=== PATIENT | male | born 1970 | race Caucasian/White ===

== ENCOUNTER → 2020-09-04 | Outpatient (CLI) | payer BC, SELFPAY ==
[2020-09-04 22:44] LABS: Absolute Lymphocyte Count 3.88 X10^3/uL (0.83-4.51); Absolute Neutrophil Count 5.4 X10^3/uL (2.0-7.7); Basophil# 0.09 X10^3/uL; Basophil% 0.9 % (0-1); Eosinophil# 0.14 X10^3/uL; Eosinophils% 1.4 % (0-5); Hematocrit 46.8 % (40-54); Hemoglobin 15.6 g/dL (13.0-16.5); Lymphocyte # 3.88 X10^3/ul (4.0); Lymphocyte % 38.4 % (19-41); Mean Corp Hgb Conc 33.3 g/dL (32-36); Mean Corpuscular Hgb 27.2 pg (27.0-32.0); Mean Corpuscular Volume 81.7 fL (80-94); Mean Platelet Vol. 9.9 fl (6.2-12.0); Monocyte# 0.61 X10^3/uL; NRBC Flagged by Analyzer 0 % (0-5); Neutrophil # 5.37 X10^3/uL (2.7-7.7); Neutrophil % 53.1 % (47-70); Platelet Count 295 K/mm3 (150-450); RBC Distribution Width CV 12.2 % (11.6-14.6); Red Blood Count 5.73 M/mm3 (4.6-6.2); White Blood Count 10.1 K/mm3 (4.4-11.0)
[2020-09-04 23:04] LABS: AST(SGOT) 17 U/L (15-37); Alanine Aminotransfer ALT/SGPT 40 U/L (16-61); Alkaline Phosphatase 100 U/L (45-117); Anion Gap 8 (5-15); BUN 18 mg/dL (7-18); BUN/Creat Ratio 16.4 RATIO (10-20); Calcium,Total 9.7 mg/dL (8.5-10.1); Chloride 97 mmol/L (98-107); EST Glomerular Filtration Rate 75 mL/min (>60); Est Glom Filt Rate - Afr Amer 91 mL/min (>60); Globulin 4.1 g/dL (2.2-4.2); Glucose 288 mg/dL (74-106); Protein, Total 8.1 g/dL (6.4-8.2); Sodium Level 135 mmol/L (136-145); Thyroid Stim Hormone (TSH) 1.26 uIU/mL (0.358-3.74)
== END | disposition home or self-care (01) ==
PROVIDERS: PCP Nurse Practitioner; Referring Provider Nurse Practitioner; Visit Provider Nurse Practitioner
DX: R07.81 Pleurodynia (principal); E11.65 Type 2 diabetes mellitus with hyperglycemia
CPT/HCPCS: 80053; 84443; 85025

== ENCOUNTER → 2020-11-08 | Outpatient (CLI) | payer BC, SELFPAY ==
--- NOTE | 2020-11-08 | LES_PTH ---
PATIENT: NAZ REAVES LOC: [facility] U#:[id number] AGE/SX: 49/M ROOM: RE11/08/[address]: SUZETTE Barone : 1970 BED: DIS: 11/08/2020 SPEC #: [id number] RECD: 11/09/20 07:44 STATUS: TRUDY SAMANTA #: [id number] THERESA: 11/08/20 00:[address]: Thelma Marshall NP DEPT: SURGICAL PATHOLOGY RECD BY: Tyrell Lombardo Tissues: Skin of leg, NOS Procedures: Surgery Specimen Level IV HEADER OPERATION: Biopsy PRE-OP DIAGNOSIS: Infected skin tags x2 TISSUE SUBMITTED: Large skin lesion, small skin lesion MICROSCOPIC DIAGNOSIS Skin lesion x2, biopsy: Fibroepithelial polyp, skin tag with focal ulceration and associated acute inflammation (larger lesion). Fibroepithelial polyp, skin tag (smaller lesion). JA:sylvia 11/10/2020 MICROSCOPIC DESCRIPTION Slides are reviewed. GROSS DESCRIPTION Received is one container labeled with the patient's name and not further designated. The specimen consists of two pieces of naik-white skin measuring 0.3 x 0.3 x 0.1 cm and 0.7 x 0.6 x 0.3 cm. The smaller piece is inked blue. The larger piece is inked black and bisected. The larger piece shows a brownish-black lesion at the surface measuring 0.3 cm in greatest dimension. The entire specimen is submitted in one cassette. / SJ:sylvia 11/09/20 TC:5 CPT: 94415
[2020-11-08 15:10] VITALS: BMI 34.2
== END | disposition home or self-care (01) ==
PROVIDERS: PCP Nurse Practitioner; Visit Provider Nurse Practitioner
DX: L91.8 Other hypertrophic disorders of the skin (principal)
CPT/HCPCS: 88305

== ENCOUNTER → 2021-04-30 | Outpatient (CLI) | payer BC, SELFPAY ==
[2021-04-30 22:15] LABS: Absolute Lymphocyte Count 1.63 X10^3/uL (0.83-4.51); Absolute Neutrophil Count 2.4 X10^3/uL (2.0-7.7); Basophil# 0.02 X10^3/uL; Basophil% 0.4 % (0-1); Eosinophil# 0.01 X10^3/uL; Eosinophils% 0.2 % (0-5); Hematocrit 40.9 % (40-54); Hemoglobin 13.7 g/dL (13.0-16.5); Lymphocyte # 1.63 X10^3/ul (0.83-4.51); Lymphocyte % 35.7 % (19-41); Mean Corp Hgb Conc 33.5 g/dL (32-36); Mean Corpuscular Hgb 27.8 pg (27.0-32.0); Mean Corpuscular Volume 83.1 fL (80-94); Mean Platelet Vol. 9.8 fl (6.2-12.0); Monocyte# 0.54 X10^3/uL; Monocyte% 11.8 % (0-10); NRBC Flagged by Analyzer 0 % (0-5); Neutrophil # 2.35 X10^3/uL (2.7-7.7); Neutrophil % 51.7 % (47-70); Platelet Count 244 K/mm3 (150-450); RBC Distribution Width CV 12.9 % (11.6-14.6); RBC Distribution Width SD 39.5 fl (35.1-43.9); Red Blood Count 4.92 M/mm3 (4.6-6.2); White Blood Count 4.6 K/mm3 (4.4-11.0)
[2021-04-30 23:00] LABS: ALB/GLOB Ratio 0.9 RATIO (0.9-2.4); AST(SGOT) 27 U/L (15-37); Alanine Aminotransfer ALT/SGPT 41 U/L (16-61); Albumin, Serum 3.6 g/dL (3.2-5.0); Alkaline Phosphatase 66 U/L (45-117); Anion Gap 9 (5-15); BUN 13 mg/dL (7-18); BUN/Creat Ratio 13.6 RATIO (10-20); Calcium,Total 9.1 mg/dL (8.5-10.1); Chloride 100 mmol/L (98-107); Creatinine, Serum 0.95 mg/dL (0.70-1.30); EST Glomerular Filtration Rate 89 mL/min (>60); Est Glom Filt Rate - Afr Amer 107 mL/min (>60); Glucose 198 mg/dL (74-106); Potassium 3.7 mmol/L (3.5-5.1); Protein, Total 7.6 g/dL (6.4-8.2); Sodium Level 138 mmol/L (136-145); Thyroid Stim Hormone (TSH) 0.37 uIU/mL (0.358-3.74); Troponin-I HS 32 pg/mL (3.0-78.0)
== END | disposition home or self-care (01) ==
PROVIDERS: PCP Nurse Practitioner; Visit Provider Nurse Practitioner
DX: E11.65 Type 2 diabetes mellitus with hyperglycemia (principal)
CPT/HCPCS: 80053; 84443; 84484; 85025; 86141

== ENCOUNTER → 2021-05-01 10:50 | Outpatient (CLI) | payer BC, SELFPAY | PROVIDERS: PCP Nurse Practitioner; Referring Provider Nurse Practitioner; Visit Provider Nurse Practitioner | DX: U07.1 COVID-19 (principal) | CPT/HCPCS: 87635; C9803; U0005; U0003 ==

== ENCOUNTER 2021-05-03 19:10 | Outpatient (CLI) | payer BC, SELFPAY ==
[2021-05-03] MEDS: 0.9% Saline Lock 10 ML Syringe IV (19:12)
[2021-05-03 19:15] VITALS: BP 132/82; PULSE 80; RESP 16; TEMP 36.9; O2SAT 98; BMI 28.5
[2021-05-03 19:35] VITALS: BP 83/52; PULSE 89; RESP 16; O2SAT 98
[2021-05-03 20:40] VITALS: BP 119/70; PULSE 66; RESP 16; TEMP 37.4; O2SAT 99
== END 2021-05-03 20:40 | disposition home or self-care (01) ==
LOC: MS3OUT 19:24 → MS3 19:25
PROVIDERS: PCP Nurse Practitioner; Referring Provider Nurse Practitioner Adult Health; Visit Provider Nurse Practitioner Adult Health
DX: Z23 Encounter for immunization (principal); U07.1 COVID-19
CPT/HCPCS: M0243; Q0244

== ENCOUNTER 2021-05-20 19:50 | Emergency (ER) | payer BC, SELFPAY ==
[2021-05-20 19:50] VITALS: BP 159/90; PULSE 80; RESP 16; TEMP 36.5; O2SAT 100; BMI 27.6
--- NOTE | 2021-05-20 20:23 | CT_ITS ---
INDICATION: headache -- recent covid, r/o thrombus EXAMINATION: CT BRAIN WITH AND WITHOUT CONTRAST - CT Head or Brain WO/W Contrast Injection TECHNIQUE: Helical CT through the head with and without contrast obtained with axial soft tissue reconstructions. Following 100 mL of ISOVUE-370 intravenous contrast, helical CT through the head is obtained with multiplanar reconstructions including maximum intensity projection reconstructions. IV Contrast dosage and agent: COMPARISON: None. FINDINGS: BRAIN PARENCHYMA: No intra- or extra-axial hemorrhage. No evidence of acute infarct. No intracranial mass or mass effect. There is preservation of the levine/white matter interface. Posterior fossa structures are unremarkable. No abnormal contrast enhancement. CSF SPACES: Appropriate for age. No hydrocephalus. Basal cisterns are patent. CALVARIUM, SKULL BASE, PARANASAL SINUSES AND MASTOID AIR CELLS: Clear. No discrete lytic or blastic abnormalities. ORBITS: Both globes, extraocular muscles, optic nerves and retrobulbar fat appear unremarkable. ASPECTS Score for Acute Strokes: 10 There are highly tortuous bilateral cervical internal carotid arteries suggesting possible hypertension. Cervical vertebral arteries are normal in appearance. The visualized portions of the distal cervical carotid and vertebral arteries are without stenosis. Intracranial internal carotid arteries, right left middle cerebral and anterior cerebral arteries are normally opacified without filling defect. No stenosis. No asymmetry peripheral collateral vessels. No aneurysms. Posterior circulation including the intracranial vertebral arteries, basilar arteries, posterior cerebral and superior cerebellar arteries as well as bilateral posterior communicating arteries are all normally opacified with no stenosis or luminal irregularity. No aneurysms. Visualized dural venous sinuses are normally opacified. CT/CTA Head W/WO Contrast IMPRESSION: Normal unenhanced CT head and brain. Normal CT angiography [place] [facility] [place]. Electronically Signed: Nimesh Pierre DO at 22:34 EDT Tel , Service support ,
--- NOTE | 2021-05-20 20:25 | EX.ED.DYSGE1 ---
HPI History of Present Illness Chief Complaint: Other, Pain/Inj Informant: patient Narrative Narrative: Presents with intermittent headache with buzzing sensation in his head causing vertigo and disorientation. States he would let up and come back. Symptoms on and off for 2 weeks. Denies head injuries. Reports diagnosed with Covid 19 infection May 01. He started having symptoms a week and prior headache on that Friday the day prior. He had a syncopal episode at work. He saw his PCP EKG and was told go ED for Covid testing. Results positive found out the following day. He lost taste and smell 2 days after that have regained this. He did get the antibiotic infusion. He is not vaccinated. Shortly after that the symptoms occurred. He states when he initially saw his PCP he was put on a new diabetic medications due to it being high he has stopped this medication since then. Currently symptoms are subsiding. He reports urinary frequency. No vomiting or diarrhea. Prior similar symptoms: No PFSH PFSH Medical History COVID-19 virus detected (05/01/21) Diabetes type 2, uncontrolled Elevated high sensitivity C-reactive protein (04/30/21) Essential hypertension Hyperlipidemia Home Medications aspirin 81 mg tablet,delayed release 81 mg PO DAILY 09/05/20 [History Last Taken Unknown] hydrochlorothiazide 12.5 mg tablet 12.5 mg PO QAM 09/05/20 [History Last Taken Unknown] lisinopril 20 mg tablet 20 mg PO DAILY 09/05/20 [History Last Taken Unknown] metoprolol tartrate 50 mg tablet 50 mg PO BID 09/05/20 [History Last Taken Unknown] pravastatin 20 mg tablet 20 mg PO QHS 09/05/20 [History Last Taken Unknown] metformin 500 mg tablet 500 mg PO BID tab 05/01/21 [History Last Taken Unknown] dexamethasone 6 mg tablet 6 mg PO DAILY #20 tab 05/08/21 [Rx Last Taken Unknown] Allergy/AdvReac Type Severity Reaction Status Date / Time cefdinir Allergy Severe rash Verified 05/20/21 19:55 Latex, Natural Rubber AdvReac Severe rash Verified 05/20/21 19:55 Social History Smoking Status: Former smoker ROS ROS ED Constitutional Constitutional ED: Denies chills, fever(s) or sweats Eyes Eyes: Denies change in vision ENT ENT ED: Denies dysphagia or sore throat Cardiovascular Cardiovascular: Denies chest pain, leg edema, palpitations or racing heartbeat Respiratory/Chest Respiratory/Chest: Denies cough, dyspnea or dyspnea on exertion Gastrointestinal Gastrointestinal: Denies abdominal pain, diarrhea, nausea or vomiting Genitourinary Genitourinary ED: Denies dysuria, hematuria or urinary frequency Musculoskeletal Musculoskeletal: Denies back pain, extremity pain or neck pain Integumentary Denies rash or wounds Neurologic Neurologic: Reports headache(s); Denies paresthesias or weakness EXAM Physical Exam Const Vital Signs: 05/20/21 19:50 Temperature 97.7 F L Temperature Source Temporal Pulse Rate 80 Respiratory Rate 16 Blood Pressure 159/90 H Blood Pressure Mean 113 Pulse Ox 100 Positive well nourished and well developed General Appearance ED: well developed and NAD HEENT Reports moist mucous membranes normocephalic and atraumatic Eyes PERRL, EOMs intact bilaterally and conjunctivae normal General Eye ED: Yes normal appearance of both eyes Neck no lymphadenopathy and supple General: Negative for tenderness Chest Wall Chest: Negative for tenderness Resp normal respiratory effort and normal air movement Effort and Inspection: symmetric chest movement; Negative for respiratory distress Cardio regular rate, regular rhythm and no murmurs Peripheral Pulses: pulses 2+ throughout GI normal to inspection, nondistended, normoactive bowel sounds and non-tender Palpation: Negative for guarding or rebound tenderness present Back/Spine no CVA tenderness and no thoracic nor lumbar tenderness Extremity normal to inspection General Extremety ED: Negative for edema or tenderness General Extremity: Negative for edema Neuro oriented x3, CN's II-XII intact bilaterally and no sensory deficits noted Sensorium / Orientation: awake and alert Skin no rashes or lesions noted and no wounds MDM MDM MDM Narrative Medical decision making narrative: Patient with no focal neurological deficits. He is reporting headaches dizziness with vertigo symptoms, symptoms occurred after being diagnosed with Covid. Discussed work-up to rule out thrombus due to his Covid infection. CT head and CTA angiograms returned negative. Lab work noted white count of 16 urine negative for infection. Denies cough. Electrolytes normal exception for glucose elevated at 524. His gap is 8. Patient is a diabetic. Discussed with patient and saw dexamethasone in his records, he had recent Covid, however reports PCP put him on dexamethasone 6 mg for 20 days. He has been taking this daily. States that they were treating his cough. Currently does not have the symptoms has approximately 5 to 7 days left. Discussed stopping the steroids at this time. Give additional fluids insulin 10 units recheck glucose was 456. He is not in DKA. He is ambulating with no difficulties. Discussed symptoms likely from hyperglycemia at this point. He will follow-up with his PCP. All questions were answered. Lab Data Attestation: I reviewed the patient's lab results. Labs: Laboratory Results - last 24 hr 05/20/21 05/20/21 05/20/21 20:40 20:44 20:44 WBC 16.6 H RBC 5.38 Hgb 15.0 Hct 44.2 MCV 82.2 MCH 27.9 MCHC 33.9 RDW Std Deviation 37.1 RDW Coeff of Jenae 12.5 Plt Count 343 MPV 10.5 Immature Gran % (Auto) 0.900 Neut % (Auto) 69.1 Lymph % (Auto) 23.5 [place] % (Auto) 5.8 Eos % (Auto) 0.6 Baso % (Auto) 0.1 Absolute Neuts (auto) 11.5 H Absolute Lymphs (auto) 3.90 Nucleated RBC % 0 Sodium 136 Potassium 3.6 Chloride 96 L Carbon Dioxide 32.0 Anion Gap 8 BUN 17 Creatinine 1.16 Estim Creat Clear Calc 76.19 Est GFR (MDRD) Af Amer 86 Est GFR (MDRD) Non-Af 71 BUN/Creatinine Ratio 14.7 Glucose 524 H* Calcium 9.7 Urine Color Yellow Urine Clarity Clear Urine pH 5.0 Ur Specific [place] 1.010 Urine Protein Negative Urine Glucose (UA) 1000 H Urine Ketones 5 H Urine Occult Blood Negative Urine Nitrite Negative Urine Bilirubin Negative Urine Urobilinogen Normal Ur Leukocyte Esterase Negative Urine RBC 0 SEEN Urine WBC 0 SEEN Ur Squamous Epith Cells 0 SEEN Urine Bacteria 0 SEEN Urine Mucus 0 SEEN POC Glucose 05/20/21 22:40 WBC RBC Hgb Hct MCV MCH MCHC RDW Std Deviation RDW Coeff of Jenae Plt Count MPV Immature Gran % (Auto) Neut % (Auto) Lymph % (Auto) [place] % (Auto) Eos % (Auto) Baso % (Auto) Absolute Neuts (auto) Absolute Lymphs (auto) Nucleated RBC % Sodium Potassium Chloride Carbon Dioxide Anion Gap BUN Creatinine Estim Creat Clear Calc Est GFR (MDRD) Af Amer Est GFR (MDRD) Non-Af BUN/Creatinine Ratio Glucose Calcium Urine Color Urine Clarity Urine pH Ur Specific [place] Urine Protein Urine Glucose (UA) Urine Ketones Urine Occult Blood Urine Nitrite Urine Bilirubin Urine Urobilinogen Ur Leukocyte Esterase Urine RBC Urine WBC Ur Squamous Epith Cells Urine Bacteria Urine Mucus POC Glucose 456 H* Radiography Diagnostic Testing: Clinical Impression(s) from Imaging Studies Head CTA 05/20/21 20:23 IMPRESSION: Normal unenhanced CT head and brain. Normal CT angiography [place]. Electronically Signed: Nimesh DO Ignacio at 22:34 EDT Tel , Service support , Discharge Plan Triage Chief Complaint: Other, Pain/Inj ED Provider: Lee Schultz Dx/Rx/DC Orders Clinical Impression: Headache, Vertigo, Hyperglycemia, drug-induced, Diabetes Instructions: Diabetes Exercise Get Started, Diabetes Exercise Plan, ED Vertigo, Unspecified Prescriptions: No Action lisinopril 20 mg tablet 20 mg PO DAILY RF: 0 pravastatin 20 mg tablet 20 mg PO QHS RF: 0 metoprolol tartrate 50 mg tablet 50 mg PO BID RF: 0 hydrochlorothiazide 12.5 mg tablet 12.5 mg PO QAM RF: 0 aspirin 81 mg tablet,delayed release (DR/EC) 81 mg PO DAILY RF: 0 metformin 500 mg tablet 500 mg PO BID RF: 0 dexamethasone [Decadron] 6 mg tablet 6 mg PO DAILY Qty: 20 RF: 0 Primary Care Provider: Thelma Marshall NP Referrals: Thelma Marshall NP, [facility] [Primary Care Provider] - 3-5 Days Activity Restrictions/Additional Instructions: Stop your dexamethasone. Glucose 524 down to 456. Normal anion gap. CT head with angiogram negative. Follow-up with your physicians for outpatient reevaluation and further management. Disposition Disposition: Home, Self Care
[2021-05-20 20:51] LABS: Bacteria 0 SEEN /hpf (None Seen); Mucous, Urine 0 SEEN /hpf (<or=2+); Red Blood Cells-Urine 0 SEEN /hpf (0-5); Squamous Epithelial Cells - UA 0 SEEN /hpf (0-5); White Blood Cells 0 SEEN /hpf (0-5)
[2021-05-20 20:52] LABS: Absolute Neutrophil Count 11.5 X10^3/uL (2.0-7.7); Basophil# 0.02 X10^3/uL; Basophil% 0.1 % (0-1); Eosinophils% 0.6 % (0-5); Hematocrit 44.2 % (40-54); Lymphocyte % 23.5 % (19-41); Mean Corp Hgb Conc 33.9 g/dL (32-36); Mean Corpuscular Hgb 27.9 pg (27.0-32.0); Mean Corpuscular Volume 82.2 fL (80-94); Mean Platelet Vol. 10.5 fl (6.2-12.0); Monocyte# 0.96 X10^3/uL; Monocyte% 5.8 % (0-10); NRBC Flagged by Analyzer 0 % (0-5); Neutrophil # 11.45 X10^3/uL (2.7-7.7); Neutrophil % 69.1 % (47-70); Platelet Count 343 K/mm3 (150-450); RBC Distribution Width CV 12.5 % (11.6-14.6); RBC Distribution Width SD 37.1 fl (35.1-43.9); Red Blood Count 5.38 M/mm3 (4.6-6.2); White Blood Count 16.6 K/mm3 (4.4-11.0)
[2021-05-20 20:53] LABS: Color, Urine Yellow (Yellow); Glucose, Dipstick 1000 mg/dl (Normal); Ketone-Dipstick 5 mg/dl (Negative); Leukocyte Esterase-Dipstick Negative /ul (Negative); Nitrite-Dipstick Negative (Negative); Occult Blood-Urine Negative /ul (Negative); Protein-Dipstick Negative (Negative); Urine Bilirubin Dipstick Negative (Negative); Urine Clarity Clear (Clear); Urine Urobilinogen Normal (Normal)
[2021-05-20 21:23] LABS: Anion Gap 8 (5-15); BUN 17 mg/dL (7-18); BUN/Creat Ratio 14.7 RATIO (10-20); Calcium,Total 9.7 mg/dL (8.5-10.1); Chloride 96 mmol/L (98-107); Creatinine, Serum 1.16 mg/dL (0.70-1.30); EST Glomerular Filtration Rate 71 mL/min (>60); Est Glom Filt Rate - Afr Amer 86 mL/min (>60); Estimated Creatinine Clearance 76.19 ml/min; Potassium 3.6 mmol/L (3.5-5.1); Sodium Level 136 mmol/L (136-145)
[2021-05-20 21:24] LABS: Glucose 524 mg/dL (74-106)
[2021-05-20] MEDS: 0.9% Normal Saline 1,000 ML 999 ML IV (21:41)
[2021-05-20] MEDS: Insulin Lispro 100 UNIT/ML INSULN.PEN 10 UNIT SC (21:41)
[2021-05-20 22:45] LABS: Bedside Glucose 456 mg/dL (70-110)
[2021-05-20 23:03] VITALS: BP 135/60; PULSE 76; RESP 16; O2SAT 99
== END 2021-05-20 23:04 | disposition home or self-care (01) ==
PROVIDERS: Emergency Provider Emergency Medicine; PCP Nurse Practitioner
DX: E11.65 Type 2 diabetes mellitus with hyperglycemia (principal); T50.905A Adverse effect of unspecified drugs, medicaments and biological substances, initial encounter; Y92.9 Unspecified place or not applicable; R51.9 Headache, unspecified; R42 Dizziness and giddiness; I10 Essential (primary) hypertension; E78.5 Hyperlipidemia, unspecified; Z86.16 Personal history of COVID-19; Z79.82 Long term (current) use of aspirin; Z79.84 Long term (current) use of oral hypoglycemic drugs; Z79.899 Other long term (current) drug therapy; Z87.891 Personal history of nicotine dependence
CPT/HCPCS: 70496; 80048; 81001; 82962; 85025; 96360; 96361; 99284; J7030; J7040; Q9967

== ENCOUNTER 2022-03-25 21:54 | Outpatient (CLI) | payer BC, SELFPAY ==
[2022-03-25 22:21] LABS: Absolute Lymphocyte Count 3.44 X10^3/uL (0.83-4.51); Absolute Neutrophil Count 3.8 X10^3/uL (2.0-7.7); Basophil# 0.09 X10^3/uL; Basophil% 1.1 % (0-1); Eosinophil# 0.24 X10^3/uL; Eosinophils% 2.9 % (0-5); Hematocrit 42.7 % (40-54); Hemoglobin 14.6 g/dL (13.0-16.5); Lymphocyte # 3.44 X10^3/ul (0.83-4.51); Lymphocyte % 41.8 % (19-41); Mean Corp Hgb Conc 34.2 g/dL (32-36); Mean Corpuscular Hgb 27.7 pg (27.0-32.0); Mean Platelet Vol. 10.5 fl (6.2-12.0); Monocyte# 0.61 X10^3/uL; Monocyte% 7.4 % (0-10); NRBC Flagged by Analyzer 0 % (0-5); Neutrophil # 3.82 X10^3/uL (2.7-7.7); Neutrophil % 46.6 % (47-70); Platelet Count 282 K/mm3 (150-450); RBC Distribution Width CV 12.4 % (11.6-14.6); RBC Distribution Width SD 36.6 fl (35.1-43.9); Red Blood Count 5.27 M/mm3 (4.6-6.2); White Blood Count 8.2 K/mm3 (4.4-11.0)
[2022-03-25 22:40] LABS: ALB/GLOB Ratio 1.1 RATIO (0.9-2.4); AST(SGOT) 15 U/L (15-37); Alanine Aminotransfer ALT/SGPT 24 U/L (16-61); Albumin, Serum 4.1 g/dL (3.2-5.0); Alkaline Phosphatase 70 U/L (45-117); Anion Gap 5 (5-15); BUN 19 mg/dL (7-18); BUN/Creat Ratio 17.6 RATIO (10-20); Calcium,Total 9.8 mg/dL (8.5-10.1); Chloride 102 mmol/L (98-107); Cholesterol 163 mg/dL (200); Creatinine, Serum 1.08 mg/dL (0.70-1.30); EST Glomerular Filtration Rate 77 mL/min (>60); Est Glom Filt Rate - Afr Amer 93 mL/min (>60); Globulin 3.7 g/dL (2.2-4.2); Glucose 163 mg/dL (74-106); High Density Lipoprotein 48 mg/dL; Potassium 4.4 mmol/L (3.5-5.1); Protein, Total 7.8 g/dL (6.4-8.2); Sodium Level 139 mmol/L (136-145); Triglycerides 211 mg/dL; Very Low Density Lipoprotein 42 mg/dL (5-40)
== END 2022-03-25 23:59 | disposition home or self-care (01) ==
PROVIDERS: PCP Nurse Practitioner; Visit Provider Nurse Practitioner
DX: I10 Essential (primary) hypertension (principal); E11.65 Type 2 diabetes mellitus with hyperglycemia; E78.5 Hyperlipidemia, unspecified
CPT/HCPCS: 80053; 80061; 83036; 85025

== ENCOUNTER → 2023-05-05 | Outpatient (CLI) | payer BC, SELFPAY ==
[2023-05-05 22:56] LABS: Absolute Neutrophil Count 3.7 X10^3/uL (2.0-7.7); Basophil# 0.07 X10^3/uL; Basophil% 0.9 % (0-1); Eosinophil# 0.24 X10^3/uL; Eosinophils% 3.2 % (0-5); Hematocrit 42.9 % (40-54); Hemoglobin 14.3 g/dL (13.0-16.5); Lymphocyte % 39.2 % (19-41); Mean Corp Hgb Conc 33.3 g/dL (32-36); Mean Corpuscular Hgb 27.9 pg (27.0-32.0); Mean Corpuscular Volume 83.8 fL (80-94); Mean Platelet Vol. 10.4 fl (6.2-12.0); Monocyte# 0.45 X10^3/uL; Monocyte% 6.1 % (0-10); NRBC Flagged by Analyzer 0 % (0-5); Neutrophil % 50.2 % (47-70); Platelet Count 269 K/mm3 (150-450); RBC Distribution Width CV 12.8 % (11.6-14.6); RBC Distribution Width SD 39.1 fl (35.1-43.9); Red Blood Count 5.12 M/mm3 (4.6-6.2); White Blood Count 7.4 K/mm3 (4.4-11.0)
[2023-05-05 23:12] LABS: ALB/GLOB Ratio 1.1 RATIO (0.9-2.4); AST(SGOT) 11 U/L (15-37); Alanine Aminotransfer ALT/SGPT 31 U/L (16-61); Albumin, Serum 3.7 g/dL (3.2-5.0); Alkaline Phosphatase 86 U/L (45-117); Anion Gap 6 (5-15); BUN 23 mg/dL (7-18); BUN/Creat Ratio 19.2 RATIO (10-20); Calcium,Total 9.5 mg/dL (8.5-10.1); Chloride 101 mmol/L (98-107); Cholesterol 229 mg/dL (200); EST Glomerular Filtration Rate 68 mL/min (>60); Est Glom Filt Rate - Afr Amer 82 mL/min (>60); Globulin 3.5 g/dL (2.2-4.2); Glucose 362 mg/dL (74-106); High Density Lipoprotein 49 mg/dL; PSA,Total - Annual Screen 1.01 ng/mL (0.00-4.00); Potassium 4.5 mmol/L (3.5-5.1); Protein, Total 7.2 g/dL (6.4-8.2); Sodium Level 136 mmol/L (136-145); Triglycerides 347 mg/dL; Very Low Density Lipoprotein 69 mg/dL (5-40)
[2023-05-05 23:20] LABS: Hemoglobin A1c 10.9 % (3.8-5.6)
== END | disposition home or self-care (01) ==
PROVIDERS: PCP Nurse Practitioner; Visit Provider Nurse Practitioner
DX: E11.65 Type 2 diabetes mellitus with hyperglycemia (principal); I10 Essential (primary) hypertension; E78.5 Hyperlipidemia, unspecified
CPT/HCPCS: 80053; 80061; 83036; 84153; 85025; G0103

== ENCOUNTER → 2024-06-25 | Outpatient (CLI) | payer OTHER, SELFPAY ==
[2024-06-25 22:57] LABS: Hemoglobin A1c 12.3 % (3.8-5.6)
== END | disposition home or self-care (01) ==
PROVIDERS: PCP Nurse Practitioner; Referring Provider Nurse Practitioner; Visit Provider Nurse Practitioner
DX: E11.65 Type 2 diabetes mellitus with hyperglycemia (principal)
CPT/HCPCS: 83036